=== PATIENT | male | born 1965 | race African-American/Black ===

== ENCOUNTER 2016-08-08 11:25 | Emergency (ER) | payer MEDICAID ==
[~2016-08-08] VITALS: Ht 185.4 cm; Wt 85.0 kg
[~2016-08-08 11:25] MED LIST: ASPI-1035 PO; HYDR12.529 PO; NAPR-681 PO; NITR0.4T3 SL; OMEP20CA10 PO; TRAM50TA3 PO
[2016-08-08] MEDS ORDERED: ONDANSETRON HCL 4MG/2ML VIAL IV STA (12:32)
[2016-08-08] MEDS ORDERED: METHYLPREDNISOLONE SOD SUCC 125 MG/2 ML VIAL IV STA (12:32)
[2016-08-08] MEDS ORDERED: MORPHINE SULFATE 4 MG/ML CPJ (NOT FOR IM USE) IV STA (12:32)
[2016-08-08] MEDS ORDERED: SODIUM CHLORIDE 0.9% 1,000 ML IV ONE (12:32)
[2016-08-08] MEDS ORDERED: IPRATROPIUM/ALBUTEROL 0.5-3(2.5)MG/3ML NEB HHN ONE (12:45)
[2016-08-08] MEDS ORDERED: LEVOFLOXACIN 750MG PREMIX 150 ML IV ONE (12:45)
[2016-08-08 13:04] LABS: BASOPHILS % 0.6 % (0.0-2.0); EOSINOPHILS % 0.1 % (0.0-5.0); HEMOGLOBIN. 13.1 g/dL (14.0-18.0); LYMPHOCYTES % 12.2 % (20.0-50.0); MEAN CORPUSCULAR HEMOGLOBIN 31.1 pg (28.0-32.0); MEAN CORPUSCULAR HGB CONC 32.7 g/dL (31.0-37.0); MEAN CORPUSCULAR VOLUME 95.1 fL (80.0-94.0); MEAN PLATELET VOLUME 8.3 fl (7.4-10.4); MONOCYTES % 6.2 % (2.0-8.0); NEUTROPHILS % 80.9 % (40.0-76.0); PLATELET 153 x1000/uL (130-400); WHITE BLOOD COUNT 5.4 x1000/uL (4.5-11.0)
[2016-08-08 13:12] LABS: CHLORIDE 100 mEq/L (98-107); INDEX HEMOLYSI 1 (1-3); INDEX ICTERIC 1 (1-4); INDEX LIPEMIC 1 (1-3)
[2016-08-08 13:14] LABS: PARTIAL THROMBOPLASTIN TIME 28.3 sec (24.0-34.0)
[2016-08-08 13:23] LABS: ALANINE AMINOTRANSFERASE 35 IU/L (13-61); ALBUMIN 3.6 g/dL (3.4-5.0); ANION GAP 17; CALCIUM 8.6 mg/dL (8.5-10.1); CARBON DIOXIDE 22 mEq/L (21-32); CREATINE KINASE 249 IU/L (39-308); LIPASE 87 IU/L (73-393); NT PRO B-TYPE NATRIURETIC PEP 236 pg/mL (5-125); TROPONIN I < 0.02 ng/mL (0.00-0.04); UREA NITROGEN BLOOD 12 mg/dL (7-21); eGFR > 60 mL/min (>60)
[2016-08-08 13:24] LABS: LACTIC ACID 4.1 mmol/L (0.4-2.0)
[2016-08-08 14:27] VITALS: BP 187/121
[2016-08-08] MEDS ORDERED: CLONIDINE 0.2MG TABLET PO ONE (14:30)
[2016-08-08 14:34] LABS: CLARITY URINE CLEAR (CLEAR); COLOR URINE YELLOW (YELLOW); GLUCOSE URINE NEGATIVE (NEGATIVE); KETONES URINE 1+ (NEGATIVE); LEUKOCYTE ESTERASE URINE NEGATIVE (NEGATIVE); NITRITE URINE NEGATIVE (NEGATIVE); OCCULT BLOOD URINE 1+ (NEGATIVE); PH URINE 5.5 (4.5-8.0); PROTEIN URINE 3+ (NEGATIVE)
[2016-08-08 14:46] LABS: *AMPHETAMINES SCREEN URINE NEGATIVE (NEGATIVE); *BARBITURATES SCREEN URINE NEGATIVE (NEGATIVE); *BENZODIAZEPINES SCREEN URINE NEGATIVE (NEGATIVE); *COCAINE SCREEN URINE PRESUMTIVE POSITIVE (NEGATIVE); CANNABINOID URINE SCREEN NEGATIVE (NEGATIVE); ECSTASY MDMA SCREEN URINE NEGATIVE (NEGATIVE); METHADONE URINE SCREEN NEGATIVE (NEGATIVE); OPIATES URINE SCREEN PRESUMTIVE POSITIVE (NEGATIVE); PHENCYCLIDINE URINE SCREEN NEGATIVE (NEGATIVE)
[2016-08-08 15:18] LABS: BACTERIA URINE TRACE; SQUAMOUS EPITHELIAL CELL URINE RARE /lpf (RARE/1+); WBC URINE 0-2 /hpf (0-2)
[2016-08-08 15:19] LABS: RBC URINE NONE SEEN /hpf (0-2)
== END 2016-08-08 15:48 | disposition home or self-care (01) ==
LOC: ER 13:21
DX: S62.101A Fracture of unspecified carpal bone, right wrist, initial encounter for closed fracture (principal); S20.219A Contusion of unspecified front wall of thorax, initial encounter; F14.10 Cocaine abuse, uncomplicated; F10.10 Alcohol abuse, uncomplicated; E86.0 Dehydration; R05 Cough; F17.200 Nicotine dependence, unspecified, uncomplicated; I10 Essential (primary) hypertension; Z86.79 Personal history of other diseases of the circulatory system; Z79.82 Long term (current) use of aspirin; Z88.0 Allergy status to penicillin; Y93.55 Activity, bike riding; V29.9XXA Motorcycle rider (driver) (passenger) injured in unspecified traffic accident, initial encounter; Y92.89 Other specified places as the place of occurrence of the external cause; Y99.8 Other external cause status
CPT/HCPCS: 29125; 36415; 71010; 73110; 73130; 80053; 80305; 81001; 82550; 83605; 83690; 83880; 84484; 85025; 85610; 85730; 87040; 93005; 96361; 96365; 96366; 96375; 99285; 99406; G0482; J1956; J2270; J2405; J2930; J7030; Z7610; J7620

== ENCOUNTER 2019-02-13 15:18 | Emergency (ER) | payer MEDICAID ==
[~2019-02-13] VITALS: Ht 172.7 cm; Wt 84.0 kg
[~2019-02-13 15:18] MED LIST changes: -ASPI-1035 PO; +ASPI-1393 PO; -NITR0.4T3 SL; +NITR0.4T49 SL; -OMEP20CA10 PO; +OMEP20CA5 PO
[2019-02-13 15:23] VITALS: BP 136/98
[2019-02-13] MEDS ORDERED: HYDROCODONE/ACETAMINOPHEN 5/325MG TABLET PO ONE (15:45)
== END 2019-02-13 17:59 | disposition home or self-care (01) ==
LOC: ER 15:18
DX: S82.832A Other fracture of upper and lower end of left fibula, initial encounter for closed fracture (principal); V19.9XXA Pedal cyclist (driver) (passenger) injured in unspecified traffic accident, initial encounter; Y93.55 Activity, bike riding; Y92.410 Unspecified street and highway as the place of occurrence of the external cause
CPT/HCPCS: 29515; 73560; 73590; 99283; Z7610

== ENCOUNTER 2020-01-02 13:04 | Emergency (ER) | payer MEDICAID ==
[~2020-01-02] VITALS: Ht 185.4 cm; Wt 95.0 kg
[~2020-01-02 13:04] MED LIST changes: -ASPI-1393 PO; +ASPI-1497 PO; +OMEP20CA14 PO; -OMEP20CA5 PO
[2020-01-02] MEDS ORDERED: KETOROLAC 60MG/2ML VIAL IM ONE (16:00)
[2020-01-02 16:56] VITALS: BP 191/128
[2020-01-02 18:26] LABS: CHLORIDE 107 mEq/L (98-107)
== END 2020-01-02 22:01 | disposition home or self-care (01) ==
LOC: ER 13:04
DX: M79.89 Other specified soft tissue disorders (principal); I11.9 Hypertensive heart disease without heart failure; Z88.0 Allergy status to penicillin; Z79.899 Other long term (current) drug therapy; Z79.82 Long term (current) use of aspirin; Z98.890 Other specified postprocedural states
CPT/HCPCS: 36415; 80053; 83880; 93005; 93971; 96372; 99285; J1885